=== PATIENT | male | born 1950 | race American Indian/Alaskan Native ===

== ENCOUNTER 2023-02-25 14:26 | Emergency (ER) | payer OTHER ==
[2023-02-25 14:38] VITALS: BP 146/77; PULSE 72; RESP 18; TEMP 98.1; BMI 25.1
[2023-02-25] MEDS ORDERED: DIPHTH,PERTUSS(ACELL),TET 0.5 ML DISP.SYRIN IM ONE ×2 (16:45→17:03)
== END 2023-02-25 17:27 | disposition home or self-care (01) ==
LOC: JERFT 14:26
PROC: 3E0234Z Introduction of Serum, Toxoid and Vaccine into Muscle, Percutaneous Approach (ICD-10-PCS; principal; 2023-02-25)
DX: S61.211A Laceration without foreign body of left index finger without damage to nail, initial encounter (principal); W26.0XXA Contact with knife, initial encounter
CPT/HCPCS: 90715; 99282-25